=== PATIENT | female | born 1990 | race Caucasian/White ===

== ENCOUNTER 2016-08-29 19:45 | Emergency (ER) | payer OTHER ==
[~2016-08-29] VITALS: Ht 144.8 cm; Wt 71.8 kg
[~2016-08-29 19:45] MED LIST: IRON325 M1 PO; MOTRIN 600600 MG/TAB PO; PERCOCET 325 MG1 TA2 PO; PRENATAL1 TA1; PROAIR HFA0.09 MG/AC IH; ZITHROMAX Z PA250 MG PO; ZOLOFT 100MG100 MG PO; ZOLOFT 50MG50 MG PO
[2016-08-29 19:53] VITALS: BP 100/74; PULSE 65; TEMP 98.2
[2016-08-29] MEDS ORDERED: LEXAPRO 10MG10 MG PO (19:56)
[2016-08-29] MEDS ORDERED: PRILOSEC 20MG20 MG PO (19:56)
[2016-08-29 20:38] LABS: PH 6 (5-8); SQUAMOUS EPITHELIAL 0-2 /hpf; URINE APPEARANCE Hazy; URINE BACTERIA Rare /hpf; URINE BILIRUBIN Negative (NEGATIVE); URINE BLOOD 3+ (NEGATIVE); URINE COLOR Straw; URINE GLUCOSE Negative (NEGATIVE); URINE KETONE Negative (NEGATIVE); URINE RBC 0-2 /hpf; URINE UROBILINOGEN Negative (NEGATIVE); URINE WBC >50 /hpf
[2016-08-29] MEDS ORDERED: PYRIDIUM 100MG100 MG PO (20:43)
[2016-08-29] MEDS ORDERED: MACROBID 1100 MG/CAP PO (20:43)
== END 2016-08-29 20:57 | disposition home or self-care (01) ==
LOC: COL.ER 19:45
PROVIDERS: Physician Assistant
DX: N39.0 Urinary tract infection, site not specified (principal); B96.20 Unspecified Escherichia coli [E. coli] as the cause of diseases classified elsewhere; R31.9 Hematuria, unspecified